=== PATIENT | male | born 1985 | race Caucasian/White ===

== ENCOUNTER 2023-11-10 21:12 | Emergency (ER) | payer SELFPAY ==
[~2023-11-10] VITALS: Ht 185.4 cm; Wt 79.5 kg
[2023-11-10 21:26] VITALS: TEMP 98.6
[2023-11-10] MEDS ORDERED: Amoxicillin/Clavulanate K+ 875/125 MG TAB PO ONE (22:30)
[2023-11-10] MEDS ORDERED: Home HYDROcodone/Acetaminophen 5/325 MG #4 TABS/PACK PO ONE (22:30)
[2023-11-10] MEDS ORDERED: AMOXICILLIN 8751 TAB PO (22:32)
[2023-11-10 22:50] VITALS: BP 148/72; PULSE 103
== END 2023-11-10 22:50 | disposition home or self-care (01) ==
LOC: COL.ER 21:12
DX: L03.012 Cellulitis of left finger (principal); Z23 Encounter for immunization

== ENCOUNTER 2024-03-05 13:34 | Emergency (ER) | payer SELFPAY ==
[~2024-03-05] VITALS: Ht 185.4 cm; Wt 81.8 kg
[~2024-03-05 13:34] MED LIST: AMOXICILLIN 8751 TAB PO
[2024-03-05 13:40] VITALS: TEMP 98.8
[2024-03-05 14:53] VITALS: BP 135/94; PULSE 85
[2024-03-06] MEDS ORDERED: PERCOCET 325 MG1 TA2 PO (10:06)
== END 2024-03-05 14:58 | disposition home or self-care (01) ==
LOC: COL.ER 13:34
DX: S61.411A Laceration without foreign body of right hand, initial encounter (principal); W25.XXXA Contact with sharp glass, initial encounter

== ENCOUNTER 2024-03-06 09:25 | Emergency (ER) | payer OTHER ==
[~2024-03-06] VITALS: Ht 185.4 cm; Wt 81.8 kg
[2024-03-06 09:30] VITALS: TEMP 97.6
[2024-03-06] MEDS ORDERED: PERCOCET 325 MG1 TA2 PO (10:06)
[2024-03-06 10:25] VITALS: BP 125/75; PULSE 81
== END 2024-03-06 10:25 | disposition home or self-care (01) ==
LOC: COL.ER 09:25
DX: M79.641 Pain in right hand (principal)